=== PATIENT | male | born 1955 | race Caucasian/White ===

== ENCOUNTER 2017-11-27 14:23 | Emergency (ER) | payer MEDICAID ==
[~2017-11-27] VITALS: Ht 188 cm; Wt 91.6 kg
[~2017-11-27 14:23] MED LIST: MECL25TA3 PO; NOR10 PO
[2017-11-27 14:30] VITALS: BP_SYST 128
[2017-11-27] MEDS ORDERED: KETOROLAC TROMETHAMINE 15 MG VIAL IVP ONE (15:15)
[2017-11-27 15:20] LABS: EOSINOPHILS # (AUTO) 0.1 K/uL (0.0-0.4); EOSINOPHILS % (AUTO) 1.7 % (0.0-4.0); HEMATOCRIT 43.7 % (36-54); HEMOGLOBIN 14.8 g/dL (14.0-18.0); LYMPHOCYTES # (AUTO) 1.8 K/uL (1.0-5.5); LYMPHOCYTES % (AUTO) 49.6 % (20.5-51.5); MEAN CORPUSCULAR HEMOGLOBIN 32 pg (27-31); MEAN CORPUSCULAR HGB CONC 34 % (32-36); MEAN CORPUSCULAR VOLUME 94 fL (79.0-98.0); MONOCYTES # (AUTO) 0.3 K/uL (0.0-1.0); MONOCYTES % (AUTO) 8.8 % (1.7-9.3); PLATELET COUNT (AUTO) 182 K/uL (130-430); RED BLOOD CELL COUNT(AUTO) 4.64 MIL/uL (4.2-6.2); RED CELL DISTRIBUTION WIDTH 12.9 % (9.0-15.0); WHITE BLOOD COUNT (AUTO) 3.6 K/uL (4.8-10.8)
[2017-11-27 15:21] LABS: NEUTROPHILS % (AUTO) 39.9 % (40.0-70.0)
[2017-11-27 15:22] LABS: NEUTROPHILS # (AUTO) 1.4 K/uL (1.8-7.7)
[2017-11-27 15:25] LABS: BILIRUBIN,URINE NEGATIVE (NEGATIVE); BLOOD, URINE 1+ (NEGATIVE); CLARITY/URINE CLEAR (CLEAR); COLOR,URINE YELLOW (YELLOW); GLUCOSE,URINE NEGATIVE (NEGATIVE); KETONES,URINE NEGATIVE (NEGATIVE); LEUKOCYTE ESTERASE ,URINE NEGATIVE (NEGATIVE); NITRITE, URINE NEGATIVE (NEGATIVE); PROTEIN URINE NEGATIVE (NEGATIVE); UROBILINOGEN,URINE 0.2 (0.2-1.0)
[2017-11-27 15:33] LABS: CALCIUM 9.3 mg/dL (8.4-11.0); CREATININE 0.92 mg/dL (0.55-1.30); POTASSIUM 4.2 mmol/L (3.5-5.1)
[2017-11-27 15:37] LABS: PROTHROMBIN TIME 10.3 SECS (9.5-12.5)
[2017-11-27 15:51] LABS: BACTERIA,URINE FEW /HPF (None Seen); WBC,URINE 0-3 /HPF (0-3)
[2017-11-27 15:52] LABS: MUCUS,URINE None Seen /LPF (None Seen)
[2017-11-27 17:45] VITALS: BP_SYST 125
== END 2017-11-27 17:45 | disposition home or self-care (01) ==
LOC: SED 14:23
DX: N45.1 Epididymitis (principal); I10 Essential (primary) hypertension; Z88.0 Allergy status to penicillin; Z91.018 Allergy to other foods
CPT/HCPCS: 36415; 76870-TC; 80048; 81000-TC; 83605; 85025; 85610-TC; 85730-TC; 99285

== ENCOUNTER 2019-12-20 09:35 | Emergency (ER) | payer OTHER, MEDICAID ==
[~2019-12-20] VITALS: Ht 188 cm; Wt 89.8 kg
[2019-12-20 10:13] VITALS: BP_SYST 130
--- NOTE | 2019-12-20 10:18 | NUR ---
Patient triaged and placed in waiting room. VSS and patient appears in no acute distress at this time. Awaiting available bed, and MD notified of need for MSE.
--- NOTE | 2019-12-20 11:35 | NUR ---
Patient to ER [facility] bed to gown for evaluation. Side rails up. Report given to MARIAH Nieves.
--- NOTE | 2019-12-20 11:43 | NUR ---
received and in care, pt calm, alert, resp unlabored, nad DENIES INJURY
[2019-12-20] MEDS ORDERED: KETOROLAC TROMETHAMINE 60 MG/2 ML VIAL IM ONE ×2 (11:45→12:00)
--- NOTE | 2019-12-20 11:55 | NUR ---
DR VASQUEZ IN TO ASSESS
[2019-12-20 11:56] LABS: BASOPHILS % (AUTO) 0.9 % (0.0-2.0); EOSINOPHILS % (AUTO) 0.3 % (0.0-4.0); HEMATOCRIT 44.3 % (36-54); HEMOGLOBIN 14.7 g/dL (14.0-18.0); LYMPHOCYTES # (AUTO) 1.4 K/uL (1.0-5.5); LYMPHOCYTES % (AUTO) 25.6 % (20.5-51.5); MEAN CORPUSCULAR HEMOGLOBIN 31 pg (27-31); MEAN CORPUSCULAR HGB CONC 33 % (32-36); MEAN CORPUSCULAR VOLUME 94 fL (79.0-98.0); MONOCYTES # (AUTO) 0.4 K/uL (0.0-1.0); MONOCYTES % (AUTO) 7.4 % (1.7-9.3); NEUTROPHILS # (AUTO) 3.5 K/uL (1.8-7.7); NEUTROPHILS % (AUTO) 65.8 % (40.0-70.0); PLATELET COUNT (AUTO) 202 K/uL (130-430); RED BLOOD CELL COUNT(AUTO) 4.74 MIL/uL (4.2-6.2); RED CELL DISTRIBUTION WIDTH 13.8 % (9.0-15.0); WHITE BLOOD COUNT (AUTO) 5.3 K/uL (4.8-10.8)
--- NOTE | 2019-12-20 12:13 | NUR ---
RESTING EASY, SKIN WARM AND DRY. PAIN MEDS EFFECTIVE, NAD
[2019-12-20 12:17] LABS: CALCIUM 9.5 mg/dL (8.4-11.0); CREATININE 0.87 mg/dL (0.55-1.30); POTASSIUM 4.2 mmol/L (3.5-5.1)
[2019-12-20 12:19] LABS: PROTHROMBIN TIME 10.2 SECS (9.5-12.5)
[2019-12-20 12:25] LABS: ALBUMIN 3.8 g/dL (3.4-4.8); TOTAL BILIRUBIN 1.1 mg/dL (0.0-1.0)
[2019-12-20 12:51] LABS: ERYTHROCYTE SEDIMENTATION RATE 8 MM/HR (0-15)
[2019-12-20 13:05] VITALS: BP_SYST 130
--- NOTE | 2019-12-20 13:09 | NUR ---
Patient given written and verbal discharge instructions and verbalizes understanding. ER MD discussed with patient the results and treatment provided. Patient in stable condition. ID arm band removed. Rx of given. Patient educated on pain management and to follow up with PMD. Pain Scale 2/10 Opportunity for questions provided and answered. Medication side effect fact sheet provided.
== END 2019-12-20 13:09 | disposition home or self-care (01) ==
LOC: SED 09:35
DX: M25.551 Pain in right hip (principal); I10 Essential (primary) hypertension; I48.91 Unspecified atrial fibrillation; E11.9 Type 2 diabetes mellitus without complications; Z88.0 Allergy status to penicillin; Z91.018 Allergy to other foods
CPT/HCPCS: 36415; 72192; 80053; 84550; 85025; 85610; 85651; 85730; 86140; 96372; 99284; J1885